=== PATIENT | female | born 1990 | race Caucasian/White ===

== ENCOUNTER 2017-03-19 03:53 | Emergency (ER) | payer OTHER ==
[~2017-03-19] VITALS: Ht 165.1 cm; Wt 113.6 kg
[~2017-03-19 03:53] MED LIST: CLAR10CA3 PO; MECL1CHW2 PO; SING10TA32 PO; TYLE325T5 PO; ZOLO50TA PO
[2017-03-19] MEDS ORDERED: IBUP80TA PO (04:48)
[2017-03-19] MEDS ORDERED: IBUPROFEN 800 MG TAB PO ONE (05:00)
[2017-03-19 05:15] VITALS: BP 124/82
--- NOTE | 2017-03-19 07:38 | REP ---
LEFT HAND: CLINICAL: Trauma. TECHNIQUE: AP, lateral, bilateral oblique views of the left hand. FINDINGS: No acute fracture or dislocation is appreciated. Osseous structures, joint spaces and surrounding soft tissues are normal. IMPRESSION: Normal left hand radiographs. No acute fracture or dislocation. Unreviewed
== END 2017-03-19 05:17 | disposition home or self-care (01) ==
LOC: M ED 03:53
DX: S63.91XA Sprain of unspecified part of right wrist and hand, initial encounter (principal); S63.602A Unspecified sprain of left thumb, initial encounter; X50.9XXA Other and unspecified overexertion or strenuous movements or postures, initial encounter; Y92.009 Unspecified place in unspecified non-institutional (private) residence as the place of occurrence of the external cause; Y93.89 Activity, other specified; Y99.8 Other external cause status; Z79.899 Other long term (current) drug therapy; Z88.0 Allergy status to penicillin; Z88.1 Allergy status to other antibiotic agents

== ENCOUNTER 2017-08-24 10:37 | Emergency (ER) | payer OTHER | END 2017-08-24 13:22 | disposition home or self-care (01) | LOC: M ED 10:37 | DX: F32.9 Major depressive disorder, single episode, unspecified (principal); Z88.0 Allergy status to penicillin; Z88.1 Allergy status to other antibiotic agents; Z79.899 Other long term (current) drug therapy | CPT/HCPCS: 99283 ==

== ENCOUNTER → 2018-03-25 | Outpatient (REF) | payer OTHER | LOC: M LAB REF 16:18 | DX: R31.9 Hematuria, unspecified (principal) | CPT/HCPCS: 87086 ==

== ENCOUNTER → 2018-03-25 | Outpatient (CLI) | payer OTHER | LOC: M RAD 15:47 | DX: M54.9 Dorsalgia, unspecified (principal); R31.9 Hematuria, unspecified | CPT/HCPCS: 76775 ==

== ENCOUNTER → 2018-07-02 | Outpatient (REF) | payer OTHER ==
[~2018-07-02] MED LIST changes: +IBUP80TA PO
== END ==
LOC: M LAB REF 16:37
PROVIDERS: ATTEND Physical Therapist
DX: J06.9 Acute upper respiratory infection, unspecified (principal)

== ENCOUNTER 2018-09-09 11:14 | Emergency (ER) | payer OTHER ==
[~2018-09-09] VITALS: Ht 165.1 cm; Wt 113.6 kg
[~2018-09-09 11:14] MED LIST changes: +MECL1CHW PO; -MECL1CHW2 PO
[2018-09-09] MEDS ORDERED: MOBI4TAB PO (14:05)
[2018-09-09] MEDS ORDERED: NAPROXEN 250 MG TAB PO ONE (14:15)
[2018-09-09 14:23] VITALS: BP 128/87
--- NOTE | 2018-09-09 15:03 | REP ---
LEFT THUMB SERIES: Four views. HISTORY: Jamming injury. FINDINGS: Four views of the left thumb demonstrate no evidence of fracture or subluxation. IMPRESSION: No acute fracture or subluxation seen. Electronically Signed by Charbel Reza MD 09/09/2018 03:52 P
== END 2018-09-09 14:26 | disposition home or self-care (01) ==
LOC: M ED 11:14
DX: S69.92XA Unspecified injury of left wrist, hand and finger(s), initial encounter (principal); W23.0XXA Caught, crushed, jammed, or pinched between moving objects, initial encounter; Y92.89 Other specified places as the place of occurrence of the external cause; Y93.67 Activity, basketball; Z88.0 Allergy status to penicillin; Z88.1 Allergy status to other antibiotic agents

== ENCOUNTER → 2019-01-05 | Outpatient (REF) | payer OTHER ==
[~2019-01-05] MED LIST changes: +MOBI4TAB PO
== END ==
LOC: M LAB REF 16:26
PROVIDERS: ATTEND Physician Assistant
DX: J02.9 Acute pharyngitis, unspecified (principal)

== ENCOUNTER 2019-05-11 17:22 | Emergency (ER) | payer MEDICAID, OTHER ==
[~2019-05-11] VITALS: Ht 162.6 cm; Wt 113.6 kg
[2019-05-11] MEDS ORDERED: ADACEL/BOOSTRIX VACCINE (DIPHTH/PERTUSS/ACELL/TETANUS)0.5ML SYR (90715) IM ONE (17:45)
[2019-05-11] MEDS ORDERED: CEFD1CAP8 (18:01)
[2019-05-11 18:33] VITALS: BP 125/73
== END 2019-05-11 18:34 | disposition home or self-care (01) ==
LOC: M ED 17:22
DX: S61.210A Laceration without foreign body of right index finger without damage to nail, initial encounter (principal); W26.0XXA Contact with knife, initial encounter; Y92.009 Unspecified place in unspecified non-institutional (private) residence as the place of occurrence of the external cause; Y93.89 Activity, other specified; Y99.8 Other external cause status; Z79.2 Long term (current) use of antibiotics; Z88.0 Allergy status to penicillin; Z88.8 Allergy status to other drugs, medicaments and biological substances; Z88.1 Allergy status to other antibiotic agents

== ENCOUNTER → 2020-12-27 | Outpatient (CLI) | payer OTHER ==
[~2020-12-27] MED LIST changes: +CEFD1CAP8
[2020-12-27 10:36] LABS: FREE T4 1.04 NG/DL (0.76-1.46); THYROID STIMULATING HORMONE 0.712 uIU/ML (0.358-3.740)
[2020-12-27 11:25] LABS: HEMOGLOBIN A1c 5.6 %
== END ==
LOC: M LAB 09:10
PROVIDERS: ATTEND Obstetrics & Gynecology
DX: N91.2 Amenorrhea, unspecified (principal)

== ENCOUNTER → 2021-08-16 | Outpatient (REF) | payer OTHER ==
[~2021-08-16] MED LIST changes: -CEFD1CAP8; +CEFD300C41
== END ==
LOC: M LAB REF 15:40
PROVIDERS: ATTEND Internal Medicine
DX: L02.91 Cutaneous abscess, unspecified (principal)

== ENCOUNTER → 2021-09-19 | Outpatient (CLI) | payer OTHER | LOC: M WUC 10:05 | PROVIDERS: ATTEND Surgery | DX: Z86.39 Personal history of other endocrine, nutritional and metabolic disease (principal) ==

== ENCOUNTER → 2021-10-15 | Outpatient (CLI) | payer OTHER | LOC: M PLAIMG 15:47 | PROVIDERS: ATTEND Physician Assistant | DX: M54.59 Other low back pain (principal) ==

== ENCOUNTER → 2021-10-29 | Outpatient (REF) | payer OTHER | LOC: M LAB REF 21:02 | PROVIDERS: ATTEND Physician Assistant | DX: L02.31 Cutaneous abscess of buttock (principal) ==

== ENCOUNTER 2022-01-27 02:50 | Emergency (ER) | payer OTHER ==
[~2022-01-27] VITALS: Ht 165.1 cm; Wt 119.8 kg
[2022-01-27 02:53] VITALS: BP 135/94
== END 2022-01-27 05:00 | disposition left against medical advice (07) ==
LOC: M ED 02:50
DX: Z53.21 Procedure and treatment not carried out due to patient leaving prior to being seen by health care provider (principal)

== ENCOUNTER → 2022-02-20 | Outpatient (REF) | payer OTHER ==
[2022-02-20 17:18] LABS: BASO # 0.1 10^3/uL (0.0-0.2); BASO % 0.7 % (0.0-1.0); EOS # 0.2 10^3/uL (0.0-0.5); EOS % 1.4 % (0.0-3.0); HEMOGLOBIN 13.6 g/dl (12.0-15.5); MEAN CORPUSCULAR HEMOGLOBIN 29.5 pg (27.0-33.0); MEAN CORPUSCULAR HGB CONC 32.4 g/dl (32.0-36.5); MEAN CORPUSCULAR VOLUME 91.1 fl (80.0-96.0); MONO # 0.7 10^3/uL (0.0-0.8); MONO % 6.7 % (2.0-8.0); NEUTROPHILS # 6.4 10^3/uL (1.5-8.5); NEUTROPHILS % 61.7 % (36.0-66.0); PLATELET COUNT, AUTOMATED 340 10^3/uL (150-450); RED BLOOD COUNT 4.61 10^6/uL (4.00-5.40); WHITE BLOOD COUNT 10.4 10^3/uL (4.0-10.0)
[2022-02-20 18:58] LABS: ALT/SGPT 28 U/L (12-78); BILIRUBIN,TOTAL 0.2 MG/DL (0.2-1.0); BLOOD UREA NITROGEN 14 MG/DL (7-18); CALCIUM LEVEL 9.1 MG/DL (8.5-10.1); CARBON DIOXIDE LEVEL 24 MEQ/L (21-32); CHLORIDE LEVEL 107 MEQ/L (98-107); CHOLESTEROL LEVEL 171 MG/DL (<200); CHOLESTEROL RISK RATIO 3.976 (<5); CREATININE FOR GFR 0.68 MG/DL (0.55-1.30); GLOMERULAR FILTRATION RATE > 60.0 (>60); GLUCOSE, FASTING 96 MG/DL (70-100); HDL CHOLESTEROL 43 MG/DL (>40); LDL CHOLESTEROL 103 MG/DL (<100); NON-HDL-C 128 MG/DL; POTASSIUM SERUM 4.3 MEQ/L (3.5-5.1); SODIUM LEVEL 138 MEQ/L (136-145); THYROID STIMULATING HORMONE 0.703 uIU/ML (0.358-3.740); TOTAL PROTEIN 7.9 GM/DL (6.4-8.2); TRIGLYCERIDES LEVEL 124 MG/DL (<150)
[2022-02-20 19:26] LABS: HEMOGLOBIN A1c 5.4 %
[2022-02-20 19:41] LABS: TOTAL 25(OH) VITAMIN D 19.2 NG/ML (30.0-100.0)
[2022-02-20 20:21] LABS: HEPATITIS C VIRUS ABY INDEX 0.2 INDEX (<0.8); HIV 1&2 SCREEN CENTAUR NEGATIVE (NEGATIVE)
== END ==
LOC: M LAB REF 16:43
PROVIDERS: ATTEND Nurse Practitioner Family
DX: E66.01 Morbid (severe) obesity due to excess calories (principal); Z11.3 Encounter for screening for infections with a predominantly sexual mode of transmission; A64 Unspecified sexually transmitted disease

== ENCOUNTER → 2022-03-14 | Outpatient (REF) | payer OTHER | LOC: M LAB REF 20:26 | PROVIDERS: ATTEND Physician Assistant | DX: R30.0 Dysuria (principal) ==

== ENCOUNTER → 2022-11-16 | Outpatient (REF) | payer OTHER ==
[~2022-11-16] MED LIST changes: +MONT-5 PO; -SING10TA32 PO
== END ==
LOC: M LAB REF 17:45
PROVIDERS: ATTEND Student in an Organized Health Care Education/Training Program
DX: R30.0 Dysuria (principal)

== ENCOUNTER → 2022-11-18 | Outpatient (REF) | payer OTHER | LOC: M WUC 20:17 | PROVIDERS: ATTEND Physician Assistant | DX: R30.0 Dysuria (principal) ==

== ENCOUNTER → 2023-05-22 | Outpatient (REF) | payer OTHER ==
[~2023-05-22] MED LIST changes: +CEFD1CAP9; -CEFD300C41
[2023-05-23 07:07] LABS: MUMPS VIRUS IgG ANTIBODY <9.0 AU/mL (Immune >10.9); RUBEOLA IgG ANTIBODY >300.0 AU/mL (Immune >16.4)
== END ==
LOC: M LAB REF 11:50
PROVIDERS: ATTEND Physician Assistant
DX: Z11.9 Encounter for screening for infectious and parasitic diseases, unspecified (principal)

== ENCOUNTER → 2023-10-20 | Outpatient (REF) | payer OTHER ==
[2023-10-20 18:08] LABS: Trichomonas vaginalis (AMP) POSITIVE (NEGATIVE)
[2023-10-20 18:38] LABS: GC DNA AMPLIFICATION NEGATIVE (NEGATIVE)
[2023-10-21 13:43] LABS: HCG, SERUM QUALITATIVE NEGATIVE (NEGATIVE)
[2023-10-21 13:57] LABS: BASO # 0.1 10^3/uL (0.0-0.2); BASO % 0.8 % (0.0-1.0); EOS # 0.2 10^3/uL (0.0-0.5); EOS % 1.4 % (0.0-3.0); HEMATOCRIT 39.9 % (36.0-47.0); HEMOGLOBIN 12.7 g/dl (12.0-15.5); LYMPH # 3.7 10^3/uL (1.5-5.0); LYMPH % 31.1 % (24.0-44.0); MEAN CORPUSCULAR HEMOGLOBIN 29.5 pg (27.0-33.0); MEAN CORPUSCULAR HGB CONC 31.8 g/dl (32.0-36.5); MEAN CORPUSCULAR VOLUME 92.6 fl (80.0-96.0); MONO % 8.8 % (2.0-8.0); NEUTROPHILS # 6.8 10^3/uL (1.5-8.5); NEUTROPHILS % 57.5 % (36.0-66.0); PLATELET COUNT, AUTOMATED 306 10^3/uL (150-450); RED BLOOD COUNT 4.31 10^6/uL (4.00-5.40); WHITE BLOOD COUNT 11.9 10^3/uL (4.0-10.0)
[2023-10-21 14:00] LABS: LIPASE 34 U/L (12-53)
[2023-10-21 14:02] LABS: ALBUMIN 3.7 G/DL (3.2-5.2); ALKALINE PHOSPHATASE 65 U/L (46-116); ALT/SGPT 21 U/L (7.0-40); AST/SGOT 12 U/L (<34); BILIRUBIN,TOTAL 0.2 MG/DL (0.3-1.2); BLOOD UREA NITROGEN 13 MG/DL (9-23); CALCIUM LEVEL 8.9 MG/DL (8.5-10.1); CARBON DIOXIDE LEVEL 25 MMOL/L (20-31); CHLORIDE LEVEL 109 MMOL/L (98-107); CREATININE FOR GFR 0.58 MG/DL (0.55-1.30); GLOMERULAR FILTRATION RATE > 60.0 (>60); GLUCOSE, FASTING 88 MG/DL (60-100); POTASSIUM SERUM 3.8 MMOL/L (3.5-5.1); SODIUM LEVEL 140 MMOL/L (136-145)
[2023-10-21 14:26] LABS: HIV 1&2 SCREEN NEGATIVE (NEGATIVE)
[2023-10-21 14:34] LABS: HEPATITIS C VIRUS ABY INDEX < 0.02 INDEX (<0.8)
== END ==
LOC: M LAB REF 16:28
PROVIDERS: ATTEND Physician Assistant
DX: Z11.3 Encounter for screening for infections with a predominantly sexual mode of transmission (principal); R10.9 Unspecified abdominal pain

== ENCOUNTER → 2023-10-26 | Outpatient (REF) | payer OTHER | LOC: M LAB REF 12:23 | PROVIDERS: ATTEND Physician Assistant | DX: R10.9 Unspecified abdominal pain (principal) ==

== ENCOUNTER → 2024-02-27 | Outpatient (REF) | payer OTHER | LOC: M LAB REF 17:56 | PROVIDERS: ATTEND Physician Assistant | DX: L02.811 Cutaneous abscess of head [any part, except face] (principal) ==

== ENCOUNTER → 2024-06-01 | Outpatient (REF) | payer OTHER, MEDICAID | LOC: M LAB REF 20:43 | PROVIDERS: ATTEND Physician Assistant | DX: B34.9 Viral infection, unspecified (principal) ==

== ENCOUNTER → 2024-10-30 | Outpatient (REF) | payer OTHER | LOC: M LAB REF 19:37 | DX: L03.313 Cellulitis of chest wall (principal) ==

== ENCOUNTER → 2025-04-04 | Outpatient (CLI) | payer OTHER | LOC: M RAD 07:07 | PROVIDERS: ATTEND Student in an Organized Health Care Education/Training Program | DX: R14.0 Abdominal distension (gaseous) (principal) ==